=== PATIENT | female | born 1950 | race Caucasian/White ===

== ENCOUNTER 2018-03-01 01:38 | Inpatient (IN) | payer MEDICARE, BC ==
[2018-03-01] VITALS (15 sets, daily range): BP systolic 142–186; BP diastolic 75–100
[~2018-03-01] VITALS: Ht 160 cm; Wt 65.1 kg
[2018-03-01 02:03] LABS: HEMATOCRIT 48.6 % (37.0-47.0); HEMOGLOBIN 15.3 g/dl (12.0-16.0); IMMATURE GRANULOCYTES 0.3 % (0.0-1.0); MEAN CELL VOLUME 88.4 fL CALC (80.0-100.0); MEAN CORPUSCULAR HGB 27.8 pG CALC (26.0-32.0); MEAN CORPUSCULAR HGB CONC 31.5 g/L CALC (32.0-36.0); NEUT# 5.65 thou/uL (2.00-7.15); RED BLOOD COUNT 5.5 mill/uL (4.20-5.60); RED CELL DISTRI WIDTH 14.8 % (11.5-15.5)
[2018-03-01 02:08] LABS: URINE BILIRUBIN - DIPSTICK NEGATIVE (NEGATIVE); URINE BLOOD DIPSTICK NEGATIVE (NEGATIVE); URINE COLOR YELLOW; URINE GLUCOSE - DIPSTICK NEGATIVE (NEGATIVE); URINE KETONE NEGATIVE (NEGATIVE); URINE LEUK ESTERASE NEGATIVE (NEGATIVE); URINE NITRITE - DIPSTICK NEGATIVE (Negative); URINE PH 6.5 (4.5-8.0); URINE PROTEIN - DIPSTICK 100 mg/dL (NEG-TRACE); URINE UROBILINOGEN - DIPSTICK 0.2 E.U./dL (0.2)
[2018-03-01 02:10] LABS: ALBUMIN 5.3 g/dL (3.2-5.0); ALKALINE PHOSPHATASE 67 u/l (38-126); ANION GAP 45 (6-22 (CALC)); BILIRUBIN, TOTAL 0.5 mg/dL (0.0-1.4); BUN 7 mg/dL (8-23); BUN/CREATININE RATIO 9 (12-20 (CALC)); CHLORIDE 104 mmol/l (95-108); CREATININE 0.9 mg/dL (0.5-1.0); GFR > 60 ML/MIN (>=60 (CALC)); GFR FOR AFR.AMER. > 60 ML/MIN (>=60 (CALC)); POTASSIUM 3.5 mmol/l (3.5-5.1); SGOT/AST 36 u/l (9-36); SGPT/ALT 56 u/l (11-66); SODIUM 153 mmol/l (137-146); TOTAL PROTEIN 9.2 g/dL (6.3-8.2)
[2018-03-01 02:12] LABS: BARBITURATES NEGATIVE (NEGATIVE); COCAINE NEGATIVE (NEGATIVE); METHADONE NEGATIVE (NEGATIVE); TETRAHYDROCANNABIONOL NEGATIVE (NEGATIVE); TRICYLIC ANTIDEPRESSANTS NEGATIVE (NEGATIVE)
[2018-03-01 02:13] LABS: OXCYCODONE NEGATIVE (NEGATIVE)
[2018-03-01 02:22] LABS: MYOGLOBIN 39 ng/mL (0 - 62)
[2018-03-01 02:30] LABS: CARBON DIOXIDE 8 mmol/l (22-30)
[2018-03-01 02:36] LABS: URINE CLARITY CLEAR
[2018-03-01 02:39] LABS: URINE BACTERIA RARE hpf; URINE SQUAMOUS EPITHELIAL CELL RARE EPI/hpf (0-FEW); URINE WBC 0-2 WBC/hpf (0-5)
[2018-03-01] MEDS ORDERED: METFORMIN850 MG PO (02:39)
[2018-03-01] MEDS ORDERED: KEPPRA1000 MG PO (02:39)
[2018-03-01] MEDS ORDERED: ATIVAN1 MG PO (02:41)
[2018-03-01 11:22] LABS: URINE BILIRUBIN - DIPSTICK NEGATIVE (NEGATIVE); URINE BLOOD DIPSTICK NEGATIVE (NEGATIVE); URINE COLOR YELLOW; URINE GLUCOSE - DIPSTICK 250 mg/dL (NEGATIVE); URINE KETONE NEGATIVE (NEGATIVE); URINE LEUK ESTERASE NEGATIVE (NEGATIVE); URINE NITRITE - DIPSTICK NEGATIVE (Negative); URINE PH 6.5 (4.5-8.0); URINE PROTEIN - DIPSTICK TRACE mg/dL (NEG-TRACE); URINE SPECIFIC GRAVITY 1.015; URINE UROBILINOGEN - DIPSTICK 0.2 E.U./dL (0.2)
[2018-03-01 11:32] LABS: URINE CLARITY CLEAR
[2018-03-01] MEDS ORDERED: LAMICTA PO (15:35)
== END 2018-03-01 19:20 | disposition short-term general hospital (02) | DRG 101 ==
LOC: ED 01:38 → ED-I 02:47 → ED 02:47 → ED-I 03:09 → ED 03:39 → MS2 03:40 → ICU 07:16
PROVIDERS: Emergency Medicine; ADMIT Internal Medicine; ATTEND Internal Medicine
DX: G40.401 Other generalized epilepsy and epileptic syndromes, not intractable, with status epilepticus (principal); E87.2 Acidosis; E87.0 Hyperosmolality and hypernatremia; E11.9 Type 2 diabetes mellitus without complications; E86.0 Dehydration; Z79.84 Long term (current) use of oral hypoglycemic drugs; Z91.14 Patient's other noncompliance with medication regimen
CPT/HCPCS: J1953; J3360

== ENCOUNTER 2018-12-23 12:58 | Emergency (ER) | payer MEDICARE, BC ==
[~2018-12-23] VITALS: Ht 160 cm; Wt 56.9 kg
[~2018-12-23 12:58] MED LIST: ATIVAN1 MG PO; KEPPRA1000 MG PO; LAMICTA PO; METFORMIN850 MG PO
[2018-12-23] MEDS ORDERED: KEPPRA1000 MG PO (13:30)
[2018-12-23] MEDS ORDERED: OMEPRAZOLE20 MG PO (13:32)
[2018-12-23 14:02] LABS: HEMOGLOBIN 13.7 g/dl (12.0-16.0); IMMATURE GRANULOCYTES 0.4 % (0.0-5.0); MEAN CELL VOLUME 88.2 fL CALC (80.0-100.0); MEAN CORPUSCULAR HGB 31.1 pG CALC (26.0-32.0); MEAN CORPUSCULAR HGB CONC 35.2 g/L CALC (32.0-36.0); NEUT# 5.97 thou/uL (2.00-7.15); RED BLOOD COUNT 4.41 mill/uL (4.20-5.60); RED CELL DISTRI WIDTH 12.8 % (11.5-15.5)
[2018-12-23 14:03] LABS: HEMATOCRIT 38.9 % (37.0-47.0)
[2018-12-23 14:18] LABS: ALBUMIN 4.3 g/dL (3.2-5.0); ALKALINE PHOSPHATASE 52 u/l (38-126); ANION GAP 15 (6-22 (CALC)); BILIRUBIN, TOTAL 0.4 mg/dL (0.0-1.4); BUN 9 mg/dL (8-23); BUN/CREATININE RATIO 14 (12-20 (CALC)); CARBON DIOXIDE 24 mmol/l (22-30); CHLORIDE 106 mmol/l (95-108); CREATININE 0.6 mg/dL (0.5-1.0); GFR > 60 ML/MIN (>=60 (CALC)); GFR FOR AFR.AMER. > 60 ML/MIN (>=60 (CALC)); POTASSIUM 3.8 mmol/l (3.5-5.1); SGOT/AST 41 u/l (9-36); SODIUM 141 mmol/l (137-146); TOTAL PROTEIN 7.4 g/dL (6.3-8.2)
[2018-12-23] MEDS ORDERED: ONDANSETRON4 MG PO (17:27)
[2018-12-23] MEDS ORDERED: PERCOCET 10/31 COMBO PO (17:27)
[2018-12-23 17:43] VITALS: BP 159/83
== END 2018-12-23 17:45 | disposition home or self-care (01) ==
LOC: ED 12:58
PROVIDERS: Emergency Medicine
DX: K85.90 Acute pancreatitis without necrosis or infection, unspecified (principal); E11.9 Type 2 diabetes mellitus without complications; I25.10 Atherosclerotic heart disease of native coronary artery without angina pectoris; G40.909 Epilepsy, unspecified, not intractable, without status epilepticus; R07.9 Chest pain, unspecified
CPT/HCPCS: Q9967

== ENCOUNTER 2019-04-15 18:12 | Observation (INO) | payer MEDICARE, BC ==
[~2019-04-15] VITALS: Ht 157.5 cm; Wt 67.0 kg
[~2019-04-15 18:12] MED LIST changes: +OMEPRAZOLE20 MG PO; +ONDANSETRON4 MG PO; +PERCOCET 10/31 COMBO PO
[2019-04-15 19:22] LABS: HEMATOCRIT 41.2 % (37.0-47.0); HEMOGLOBIN 14.2 g/dl (12.0-16.0); IMMATURE GRANULOCYTES 0.4 % (0.0-5.0); MEAN CELL VOLUME 85.7 fL CALC (80.0-100.0); MEAN CORPUSCULAR HGB 29.5 pG CALC (26.0-32.0); MEAN CORPUSCULAR HGB CONC 34.5 g/L CALC (32.0-36.0); NEUT# 3.89 thou/uL (2.00-7.15); RED BLOOD COUNT 4.81 mill/uL (4.20-5.60); RED CELL DISTRI WIDTH 12.7 % (11.5-15.5)
[2019-04-15 19:34] LABS: ALBUMIN 4.3 g/dL (3.2-5.0); ALKALINE PHOSPHATASE 65 u/l (38-126); ANION GAP 15 (6-22 (CALC)); BILIRUBIN, TOTAL 0.4 mg/dL (0.0-1.4); BUN 14 mg/dL (8-23); BUN/CREATININE RATIO 19 (12-20 (CALC)); CARBON DIOXIDE 23 mmol/l (22-30); CHLORIDE 106 mmol/l (95-108); CREATININE 0.7 mg/dL (0.5-1.0); GFR > 60 ML/MIN (>=60 (CALC)); GFR FOR AFR.AMER. > 60 ML/MIN (>=60 (CALC)); POTASSIUM 3.3 mmol/l (3.5-5.1); SGOT/AST 30 u/l (9-36); SODIUM 141 mmol/l (137-146); TOTAL PROTEIN 7.3 g/dL (6.3-8.2)
[2019-04-15 19:46] LABS: MYOGLOBIN 15 ng/mL (0 - 62)
[2019-04-15 20:01] LABS: URINE BILIRUBIN - DIPSTICK NEGATIVE (NEGATIVE); URINE BLOOD DIPSTICK NEGATIVE (NEGATIVE); URINE COLOR YELLOW; URINE GLUCOSE - DIPSTICK NEGATIVE (NEGATIVE); URINE KETONE NEGATIVE (NEGATIVE); URINE LEUK ESTERASE NEGATIVE (NEGATIVE); URINE NITRITE - DIPSTICK NEGATIVE (Negative); URINE PROTEIN - DIPSTICK NEGATIVE (NEG-TRACE); URINE UROBILINOGEN - DIPSTICK 0.2 E.U./dL (0.2)
[2019-04-15 21:02] VITALS: BP 133/79
[2019-04-16 00:06] VITALS: BP 131/79
[2019-04-16 04:19] VITALS: BP 122/75
[2019-04-16 05:40] LABS: HEMATOCRIT 40.6 % (37.0-47.0); HEMOGLOBIN 13.8 g/dl (12.0-16.0); IMMATURE GRANULOCYTES 0.3 % (0.0-5.0); MEAN CELL VOLUME 87.3 fL CALC (80.0-100.0); MEAN CORPUSCULAR HGB 29.7 pG CALC (26.0-32.0); NEUT# 3.23 thou/uL (2.00-7.15); RED BLOOD COUNT 4.65 mill/uL (4.20-5.60)
[2019-04-16 06:07] LABS: ALKALINE PHOSPHATASE 61 u/l (38-126); AMYLASE 71 u/l (30-110); ANION GAP 14 (6-22 (CALC)); BILIRUBIN, TOTAL 0.5 mg/dL (0.0-1.4); BUN 13 mg/dL (8-23); BUN/CREATININE RATIO 21 (12-20 (CALC)); CARBON DIOXIDE 21 mmol/l (22-30); CHLORIDE 111 mmol/l (95-108); CREATININE 0.6 mg/dL (0.5-1.0); GFR > 60 ML/MIN (>=60 (CALC)); GFR FOR AFR.AMER. > 60 ML/MIN (>=60 (CALC)); LIPASE 195 u/l (23-300); MAGNESIUM 1.9 mg/dL (1.6-2.3); POTASSIUM 3.8 mmol/l (3.5-5.1); SGOT/AST 28 u/l (9-36); SODIUM 142 mmol/l (137-146); TOTAL PROTEIN 6.9 g/dL (6.3-8.2)
[2019-04-16 07:25] VITALS: BP 113/72
[2019-04-16] MEDS ORDERED: PANTOPRAZOLE SO40 M1 PO (12:09)
== END 2019-04-16 12:44 | disposition home or self-care (01) ==
LOC: ED 18:12 → ED-I 19:49 → ED 20:02 → MS2 20:03
PROVIDERS: Emergency Medicine; ADMIT Internal Medicine Nephrology; ATTEND Internal Medicine Nephrology
DX: K21.9 Gastro-esophageal reflux disease without esophagitis (principal); I10 Essential (primary) hypertension; I25.10 Atherosclerotic heart disease of native coronary artery without angina pectoris; E11.9 Type 2 diabetes mellitus without complications; G40.909 Epilepsy, unspecified, not intractable, without status epilepticus; R07.9 Chest pain, unspecified
CPT/HCPCS: J1650; S0164

== ENCOUNTER 2019-08-08 14:06 | Observation (INO) | payer MEDICARE, BC ==
[~2019-08-08] VITALS: Ht 157.5 cm; Wt 69.0 kg
[~2019-08-08 14:06] MED LIST changes: +PANTOPRAZOLE SO40 M1 PO
--- NOTE | 2019-08-08 14:14 | NUR ---
PT HAS LACERATION TO LEFT EYE WHERE FELL.
--- NOTE | 2019-08-08 14:29 | NUR ---
PT ARRIVES BY EMS APPEARING POSTICTAL. SKIN TEARS NOTED TO LEFT FOREARM AND ELBOW. C-COLLAR APPLIED.
[2019-08-08 14:55] LABS: HEMOGLOBIN 14.8 g/dl (12.0-16.0); IMMATURE GRANULOCYTES 0.7 % (0.0-5.0); MEAN CORPUSCULAR HGB CONC 34.4 g/L CALC (32.0-36.0); NEUT# 4.79 thou/uL (2.00-7.15); RED BLOOD COUNT 4.94 mill/uL (4.20-5.60); RED CELL DISTRI WIDTH 13.1 % (11.5-15.5)
[2019-08-08 15:24] LABS: URINE BILIRUBIN - DIPSTICK NEGATIVE (NEGATIVE); URINE BLOOD DIPSTICK TRACE-INTACT (NEGATIVE); URINE COLOR YELLOW; URINE GLUCOSE - DIPSTICK NEGATIVE (NEGATIVE); URINE KETONE TRACE mg/dL (NEGATIVE); URINE LEUK ESTERASE NEGATIVE (NEGATIVE); URINE NITRITE - DIPSTICK NEGATIVE (Negative); URINE PROTEIN - DIPSTICK 100 mg/dL (NEG-TRACE); URINE SPECIFIC GRAVITY >=1.030; URINE UROBILINOGEN - DIPSTICK 0.2 E.U./dL (0.2)
[2019-08-08 15:27] LABS: URINE SQUAMOUS EPITHELIAL CELL FEW EPI/hpf (0-FEW)
[2019-08-08 16:25] LABS: ALBUMIN 4.5 g/dL (3.2-5.0); ALKALINE PHOSPHATASE 65 u/l (38-126); ANION GAP 18 (6-22 (CALC)); BILIRUBIN, TOTAL 0.4 mg/dL (0.0-1.4); BUN 9 mg/dL (8-23); BUN/CREATININE RATIO 13 (12-20 (CALC)); CARBON DIOXIDE 21 mmol/l (22-30); CHLORIDE 104 mmol/l (95-108); CREATININE 0.7 mg/dL (0.5-1.0); GFR > 60 ML/MIN (>=60 (CALC)); GFR FOR AFR.AMER. > 60 ML/MIN (>=60 (CALC)); LIPASE 444 u/l (23-300); POTASSIUM 4.1 mmol/l (3.5-5.1); SGOT/AST 29 u/l (9-36); SODIUM 138 mmol/l (137-146); TOTAL PROTEIN 7.8 g/dL (6.3-8.2)
--- NOTE | 2019-08-08 16:51 | NUR ---
WOUNDS TO LEFT ARM CLEANED AND COVERED.
--- NOTE | 2019-08-08 18:12 | NUR ---
PT COMES TO THE FLOOR VIA STRETCHER WITH STAFF IN STABLE BUT LETHARGIC CONDITION. PT IS PULLED FROM STRECHER TO BED x3 STAFF. PT ABLE TO TELL ME NAME AND . SLOW TO ANSWER. PT FOLLOWS COMMANDS ABLE TO MOVE ALL EXTREMITIES IN A SLOW MANNER. VS OBTAINED. BED ALARM IN PLACE AND RAILS PADDED FOR PT SAFETY. CALL ALVAREZ IN REACH. WILL CONTINUE TO MONITOR. PT
[2019-08-08 18:15] VITALS: BP 136/85
--- NOTE | 2019-08-08 18:21 | NUR ---
PT TAKEN TO ROOM 291 WITHOUT INCIDENT, REPORT TO HAIM. PT CONTINUES LETHARGIC, ANSWERS QUESTIONS WHEN PRESSED.
--- NOTE | 2019-08-08 19:00 | NUR ---
REPORT FROM HAIM LO. PT RESTING IN BED. ALERT AND ORIENTED TO SELF AT THIS TIME. RESPONSE TIME IS A LITTLE SLOW. PT DENIES ANY PAIN OR DISCOMFORT. NO APPARENT DISTRESS NOTED. SEIZURE PRECAUTIONS AND BED ALARM IN PLACE. CALL LIGHT WITHIN REACH. WILL CONTINUE TO MONITOR.
--- NOTE | 2019-08-08 19:45 | NUR ---
METAL SPRAYER CALLED TO ROOM BY RN AFTER PASSING BY ROOM AND NOTICED PT HAVING SEIZURE. PT PLACED ON LEFT SIDE AT THIS TIME. OBSERVED SEIZURE LASTED FOR ABOUT 2-3 MINS. PT WAS INCONTINENT OF BOWEL AND BLADDER AT THIS TIME. RAPID RESPONSE CALLED TO ROOM. BUTTON CUTTER, ER NURSE, AND RT IN ROOM. VS 198/104, 125, 93%. PT PLACED ON NON-REBREATHER BY RT. ORDERS RECIEVED BY JOURNEYMAN MOLDER PHYSICIAN. COMPLETE BED BATH AND LINEN CHANGE PROVIDED. RESPIRATIONS LABORED AND PT APPEARS POSTICTAL. WILL MEDICATE SOON MEDICATIONS PROFILED AND CONTINUE TO MONITOR.
--- NOTE | 2019-08-08 20:13 | NUR ---
CURRENT VS 165/75, 127, 98%, 24. IV ATIVAN ADMINISTERED. WAITING FOR IV KEPPRA AT THIS TIME WILL ADMINISTER WHEN ARRIVES.
[2019-08-08 23:18] VITALS: BP 143/93
--- NOTE | 2019-08-08 23:32 | NUR ---
PT RESTING IN BED WITH EYES CLOSED. PT ALERT TO SPEECH BUT REMAINS NONVERBAL. NO APPARENT DISTRESS NOTED. CALL LIGHT WITHIN REACH AND BED ALARM FOR SAFETY. WILL CONTINUE TO MONITOR.
--- NOTE | 2019-08-09 03:06 | NUR ---
PT RESTING IN BED WITH EYES CLOSED. NO APPARENT DISTRESS NOTED. PT ALERT TO SPEECH WITH SLOW VERBAL REPONSE. CALL LIGHT WITHIN REACH AND BED ALARM FOR SAFETY.
[2019-08-09 03:59] VITALS: BP 155/94
--- NOTE | 2019-08-09 06:33 | NUR ---
PT REMAINS POSTICTAL AND NON VERBAL AT THIS TIME. GO CART MECHANIC NOT ABLE TO COMPLETE ADMISSION ASSESSMENT PART A. WILL REPORT TO DAY SHIFT.
--- NOTE | 2019-08-09 07:15 | NUR ---
REPORT RECEIVED FROM TERESITA ALCANTAR;PT RESTING IN SEMI FOWLERS POSITION;OPENS EYES TO VERBAL STIMULI BUT REMAINS NON-VERBAL AT THIS TIME;PT HAD A SEIZURE LAST NIGHT 08/08/19 AND HAS REMAINED POSTICTAL SINCE;RESPIRATIONS APPEAR EVEN AND UNLABORED ON O2 @ 2L VIA NC;NO S/S OF DISTRESS NOTED;TELE MONITORING IN PLACE;IV FLUIDS INFUSING TO LEFT WRIST @ 100ML/HR WITH EASE;SEIZURE PRECAUTIONS NOTED;FALL PRECAUTIONS NOTED WITH BED IN THE LOWEST POSITION AND BED ALARM ON FOR SAFETY;CALL LIGHT IN REACH;WILL CONTINUE TO MONITOR
--- NOTE | 2019-08-09 09:00 | NUR ---
PT RESTING IN SEMI FOWLERS POSITION;CONTINUES TO OPEN HER EYES WITH VERBAL STIMULI BUT REMAINS NON-VERBAL;EYES PERRLA;VS OBTAINED AND ASSESSMENT COMPLETED;NO S/S OF DISTRESS NOTED;RESPIRATIONS EVEN AND UNLABORED,SHALLOW ON O2 @ 2L VIA NC,CLEAR LUNG SOUNDS;ABDOMEN SOFT ON PALPATION AND ACTIVE IN ALL 4 QUADRANTS;STRONG PEDAL PULSES;SKIN TEAR NOTED TO LEFT FOREARM, AND GENERALIZED BRUISING NOTED TO FACE AND ABDOMEN FROM FALL MENDER HAND;#22G TO LEFT WRIST INFUSING NS @ 100ML/HR,SITE APPEARS HEALTHY;TELE MONITORING IN PLACE;SEIZURE PRECAUTIONS NOTED;ALL SAFETY PRECAUTIONS IN PLACE WITH BED IN THE LOWEST POSITION AND BED ALARM ON FOR SAFETY;CALL LIGHT IN REACH;WILL CONTINUE TO MONITOR
[2019-08-09 09:04] VITALS: BP 163/93
[2019-08-09 11:05] VITALS: BP 156/85
--- NOTE | 2019-08-09 11:35 | NUR ---
PT RESTING IN SEMI FOWLERS POSITION;REMAINS NON-VERBAL BUT IS ABLE TO OPEN HER EYES TO VERBAL STIMULI AND MOVE BUE AND BLE AROUND BED;RESPIRATIONS REMAIN SHALLOW ON O2 @ 2L VIA NC;NO S/S OF DISTRESS NOTED;TELE MONITORING IN PLACE;IV FLUIDS CONTINUE AT 100ML/HR,SITE APPEARS HEALTHY;SEIZURE PRECAUTIONS BED ALARM REMAINS ON FOR PT SAFETY;CALL LIGHT IN REACH;WILL CONTINUE TO MONITOR
--- NOTE | 2019-08-09 13:51 | NUR ---
ATTEMPTED TO COMPLETE MED REC, BUT WAS UNSUCCESSFUL. PT WAS UNRESPONSIVE. SPOKE WITH NURSE DEAN AND NO ADDITIONAL INFORMATION IS AVAILABLE AT THIS TIME.
[2019-08-09 15:05] VITALS: BP 152/97
--- NOTE | 2019-08-09 15:15 | NUR ---
PT TRANSPORTED TO MRI IN STABLE CONDITION VIA STRETCHER ACCOMPANIED BY CORBIN CNA.
--- NOTE | 2019-08-09 16:25 | NUR ---
PT ARRIVED BACK TO MED/SURG ROOM 291 IN STABLE CONDITION VIA STRETCHER ACCOMPANIED BY ARLENE AND ALEXEI SANZ;PT RE-POSITIONED INTO HOSPITAL BED;RESPIRATIONS EVEN AND UNLABORED ON O2 @ 2L VIA NC;TELE MONITORING IN PLACE;IV SITE TO LEFT WRIST PATENT,NS RE-STARTED @ 100ML/HR,SITE APPEARS HEALTHY;SAFETY PRECAUTIONS REINFORCED WITH BED ALARM ON FOR SAFETY;CALL LIGHT IN REACH;WILL CONTINUE TO MONITOR
--- NOTE | 2019-08-09 18:20 | NUR ---
SPOKE WITH AT THIS TIME REGARDING POSITIVE ACUTE ISCHEMIA LEFT FRONTAL LOBE BRAIN CATSCAN.
--- NOTE | 2019-08-09 18:22 | NUR ---
PT DAUGHTER REDDY NOTIFIED OF CATSCAN FINDINGS AND AGREES TO TRANSFER PT TO [facility]. NOTIFIED.AWAITING CALL BACK FROM REGARDING ACCEPTING PHYSICAN.
--- NOTE | 2019-08-09 18:40 | NUR ---
CALL RECEIVED FROM ANABELL GONZALEZ,NURSING OPERATING MANAGER AT [facility].PT TO BE TRANSFERRED [facility] ROOM 313 TCU.
--- NOTE | 2019-08-09 19:00 | NUR ---
RECEIVED REPORT FROM NURSE JERMAINE, PATIENT AWAKE, LAYING IN RT SIDE, REMAINS ON SEIZURE PRECAUTION, EVEN UNLABORED BREATHING CALL LIGHT AT REACH.
--- NOTE | 2019-08-09 19:50 | NUR ---
CALLED [facility] AT SPOKE TO MARGARITA. GAVE PT INFORMATION AND WAS GIVEN AN ETA AT AROUND 3 HOURS DUE TO ONE TRUCK BEING AVAILABLE. COTTON BU[employer]ER WAS TOLD IF THEY GET ANOTHER AVAILABLE THEY WILL CALL.
[2019-08-09 19:55] VITALS: BP 142/89
--- NOTE | 2019-08-09 21:10 | NUR ---
PATIENT CURRENTLY RESTING IN BED, ABLE TO OPEN EYES TO VERBAL STIMULI, STILL NON VERBAL LETHARGIC, REMAINS ON SEIZURE PRECAUTION AND FALL PRECAUTION, EVEN UNLABORED BREATHING AT THIS TIME, WITH AN ONGOING IV OF NS @100CC/HR INFUSING WELL, REMAINS ON TELE, AWAITING [facility] FOR HOSPITAL TRANSFER.
[2019-08-09 23:33] VITALS: BP 145/94
--- NOTE | 2019-08-10 | NUR ---
PATIENT IV SITE LEAKING REMOVED CATHETER, CATHETER INTACT, NEW IV SITE STARTED ON RT WRIST PATENT FLUSHES WELL, PATIENT MORE ALERT AT THIS TIME, ABLE TO SAY NO OR YES, EVEN UNLABORED BREATHING, TURNED AND REPOSITION, INCONTINENT CARE DONE.
--- NOTE | 2019-08-10 03:48 | NUR ---
PATIENT OPENS EYES TO VERBAL STIMULI, APPEARS TO BE LETHARGIC, EVEN UNLABORED BREATHING, CALL LIGHT AT REACH.
--- NOTE | 2019-08-10 04:16 | NUR ---
RECEIVED A PHONE CALL FROM [facility] SPOKE TO TELEGRAPHIC TYPEWRITER REPAIRER ILEANA AND INFORMED HIM THAT WE ARE STILL WAITING FOR [facility] TRANSPORT.
--- NOTE | 2019-08-10 04:48 | NUR ---
[facility] ARRIVED AT 0421, PATIENT TRANSPORTED VIA STRETCHER, WITH EVEN UNLABORED BREATHING, ABLE TO OPEN EYES TO VERBAL STIMULI. CALLED [facility] @ 0439 AND SPOKE TO NURSE JULI FROM [facility] NURSE TO NURSE REPORT GIVEN.
== END 2019-08-10 04:21 ==
LOC: ED 14:06 → ED-I 17:06 → ED 17:30 → MS2 17:31
PROVIDERS: Family Medicine; ADMIT Internal Medicine; ATTEND Internal Medicine
DX: I63.89 Other cerebral infarction (principal); G40.909 Epilepsy, unspecified, not intractable, without status epilepticus; E11.9 Type 2 diabetes mellitus without complications; I25.10 Atherosclerotic heart disease of native coronary artery without angina pectoris; S51.012A Laceration without foreign body of left elbow, initial encounter; S51.812A Laceration without foreign body of left forearm, initial encounter; S00.212A Abrasion of left eyelid and periocular area, initial encounter; S00.33XA Contusion of nose, initial encounter; T42.6X6A Underdosing of other antiepileptic and sedative-hypnotic drugs, initial encounter; I10 Essential (primary) hypertension; F03.90 Unspecified dementia, unspecified severity, without behavioral disturbance, psychotic disturbance, mood disturbance, and anxiety; X58.XXXA Exposure to other specified factors, initial encounter; Z91.138 Patient's unintentional underdosing of medication regimen for other reason
CPT/HCPCS: J1650; J1953; J2060